=== PATIENT | male | born 1940 | race Asian ===

== ENCOUNTER 2017-12-10 08:37 | Day surgery (SDC) | payer MEDICARE, MEDICAID ==
[~2017-12-10] VITALS: Ht 175.3 cm; Wt 62.0 kg
[~2017-12-10 08:37] MED LIST: ASPI-1265 PO; ATEN50TA8 PO; ATOR20TA PO; FERR325T28 PO; HYDR12.5 PO; LIDOcaine 1%/PF 5ML 10 MG/ML VIAL ONE; MULT-1179 PO; OMEG500C3 PO; PANT-47 PO
[2017-12-10] MEDS ORDERED: ACET-2119 PO (09:33)
[2017-12-10] MEDS ORDERED: DOCU283E2 COLOSTOMY (09:33)
[2017-12-10] MEDS ORDERED: POTA20TA19 PO (09:33)
[2017-12-10] MEDS ORDERED: DOCU-28 PO (09:33)
[2017-12-10] MEDS ORDERED: COU1T PO (09:33)
[2017-12-10] MEDS ORDERED: ATOR40TA71 PO (09:33)
[2017-12-10] MEDS ORDERED: MEGE40TA27 PO (09:33)
[2017-12-10] MEDS ORDERED: DEXT1DRO6 OP (09:33)
[2017-12-10] MEDS ORDERED: INSU100C10 SQ (09:33)
[2017-12-10] MEDS ORDERED: FURO80TA87 PO (09:33)
[2017-12-10] MEDS ORDERED: ONDA4TAB12 PO (09:33)
[2017-12-10] MEDS ORDERED: POLY17PO10 PO (09:33)
[2017-12-10] MEDS ORDERED: FLUD0.1T PO (09:33)
[2017-12-10] MEDS ORDERED: HYDR-565 PO (09:33)
[2017-12-10] MEDS ORDERED: HYDR-3965 PO (09:33)
[2017-12-10] MEDS ORDERED: SODI650T29 PO (09:33)
[2017-12-10 09:36] VITALS: BP 155/87
[2017-12-10 09:50] VITALS: BP 155/87
== END 2017-12-10 10:30 ==
LOC: SSTAY O 08:37
PROVIDERS: ATTEND Radiology Diagnostic Radiology
DX: Z49.01 Encounter for fitting and adjustment of extracorporeal dialysis catheter (principal); I48.0 Paroxysmal atrial fibrillation; E11.9 Type 2 diabetes mellitus without complications; N17.9 Acute kidney failure, unspecified; I10 Essential (primary) hypertension; K21.9 Gastro-esophageal reflux disease without esophagitis; Z79.4 Long term (current) use of insulin; Z79.01 Long term (current) use of anticoagulants; Z79.82 Long term (current) use of aspirin; Z79.891 Long term (current) use of opiate analgesic; Z87.891 Personal history of nicotine dependence; Z90.5 Acquired absence of kidney; Z72.89 Other problems related to lifestyle; Z93.2 Ileostomy status; Z98.890 Other specified postprocedural states; Z79.899 Other long term (current) drug therapy
CPT/HCPCS: 36589; A6257; A6449; J2001